=== PATIENT | male | born 1990 | race Caucasian/White ===

== ENCOUNTER 2019-04-04 18:38 | Emergency (ER) | payer OTHER ==
--- NOTE | 2019-04-04 19:18 | EDM.PDOC ---
ED HPI GENERAL MEDICAL PROBLEM - General Chief Complaint: Bite:Animal, Insect Stated Complaint: PT HAS SPIDER BITE ON RT ARM Time Seen by Provider: 04/04/19 19:11 - History of Present Illness INITIAL COMMENTS - FREE TEXT/NARRATIVE: HISTORY AND PHYSICAL: History of present illness: The patient is a 21-year-old male who presents with a five-day history of pain and swelling near his right elbow. The patient says that initially he had a small pustule on the underside of his proximal right forearm and he was not sure where he came from but he did squeeze it and it seemed to go away. He then noticed that there was redness and swelling to the area which seems to have gradually increased although he has no weakness numbness or tingling in the arm or the distal hand. He says that today he noticed that his forearm was significantly more swollen and red than the other one and he is concerned. He has no discrete elbow pain or bony forearm wrist or hand pain and he is left- hand dominant. He says he has no systemic complaints of fever chills nausea vomiting chest pain or shortness of breath and says he had a recent cold that he is getting over. He is able to use his hand and go to work and he says he does work around a lot of dirt and debris. He is up-to-date on his tetanus shot Review of systems: As per history of present illness and below otherwise all systems reviewed and negative. Past medical history: As per history of present illness and as reviewed below otherwise noncontributory. Surgical history: As per history of present illness and as reviewed below otherwise noncontributory. Social history: No reported history of drug or alcohol abuse. Family history: As per history of present illness and as reviewed below otherwise noncontributory. Physical exam: General: Well-developed well-nourished man who is nontoxic and vital signs are noted by me HEENT: Atraumatic, normocephalic, negative for conjunctival pallor or scleral icterus, mucous membranes moist, throat clear, neck supple, nontender, trachea midline. Lungs: Clear to auscultation, breath sounds equal bilaterally, chest nontender. Heart: S1S2, regular and rhythm no overt murmurs Abdomen: Soft, nondistended, nontender. NABS Pelvis: Deferred Genitourinary: Deferred. Rectal: Deferred. Extremities: Atraumatic, range of motion of all extremities with the exception of the left forearm where on the proximal aspect of the elbow on the extensor surface there is a 1 cm small area of pustule with a diffuse area of erythema extending both distally and proximally measuring approximately 21 x 20 cm. There is no gross fluctuance in this soft tissue area but there is induration and tenderness as well as warmth. The patient has no bony tenderness at the elbow forearm nor distally and proximally. He has full motor ability of his upper extremity including his forearm wrist and hand and has no pain with flexion and extension at his wrist or in his hand movements. He has slight streaking up the inner aspect of the upper arm but there is no axillary adenopathy. There is no crepitus on palpation and no discrete area of fluctuance that appears to be drainable. All other extremities are within normal limits and the legs are negative for cords or calf pain. Neurovascular unremarkable. Neuro: Awake, alert, oriented. Cranial nerves II through XII unremarkable. Cerebellum unremarkable. Motor and sensory unremarkable throughout. Exam nonfocal. Diagnostics: CBC with differential lactic acid x-ray of right elbow soft tissue ultrasound of right upper extremity, blood cultures 2 Culture of wound Therapeutics: IV vancomycin Toradol sling bacitracin and dressing After the ultrasound results were reviewed and discussed with the patient I did do a alcohol prep of the area and did a scraping of the surface of the pustule and was able to express some lid for culture. There was only a small amount approximately 1 mL of fluid. The patient tolerated this procedure well I discussed with the patient and family at bedside disposition plans. At this point he has some positive lab values but he is not systemically ill and he is receiving the vancomycin currently. He would like to try to go home I have marked the area and have cautioned him to follow this closely and will give him Bactrim for home. I've advised him that if he has any systemic complaints such as fever or the redness starts streaking or any dramatic changes that he should return to the ED for admission. He states understanding Impression: Cellulitis right forearm Definitive disposition and diagnosis as appropriate pending reevaluation and review of above. right elbow Pain Score (Numeric/FACES): 5 - Related Data Allergies Allergy/AdvReac Type Severity Reaction Status Date / Time amoxicillin Allergy Hives Verified 04/04/19 19:16 Home Meds: Home Meds . [No Known Home Meds] 04/04/19 [History] Past Medical History - Past Health History Medical/Surgical History: Denies Medical/Surgical History Social & Family History - Family History Family Medical History: Noncontributory - Tobacco Use Smoking Status *Q: Never Smoker - Recreational Drug Use Recreational Drug Use: No ED ROS GENERAL - Review of Systems Review Of Systems: ROS reveals no pertinent complaints other than HPI. ED EXAM, ANIMAL BITE - Physical Exam Exam: See Below (See dictation) Course - Vital Signs Last Recorded V/S: Last Vital Signs Temp 36.4 C 04/04/19 19:00 Pulse 88 04/04/19 21:00 Resp 18 04/04/19 21:00 BP 124/88 04/04/19 21:00 Pulse Ox 96 04/04/19 21:00 - Orders/Labs/Meds Orders: Active Orders 24 hr Category Date Time Status CULTURE BLOOD [BC] Stat Lab 04/04/19 20:33 Received CULTURE BLOOD [BC] Stat Lab 04/04/19 20:43 Received CULTURE WOUND [RM] Stat Lab 04/04/19 21:20 Ordered Sodium Chloride 0.9% [Saline Flush] Med 04/04/19 20:08 Active 10 ml FLUSH ASDIRECTED PRN Sodium Chloride 0.9% [Saline Flush] Med 04/04/19 20:08 Active 2.5 ml FLUSH ASDIRECTED PRN Vancomycin 1 gm Med 04/04/19 20:08 Active Sodium Chloride 0.9% [Normal Saline (AdvBag)] 250 ml IV ONETIME Blood Culture x2 Reflex Set [OM.PC] Stat Oth 04/04/19 20:25 Ordered Saline Lock Insert [OM.PC] Stat Oth 04/04/19 20:08 Ordered Medication Orders Vancomycin HCl 1 gm/ Sodium (Chloride) 250 mls @ 166 mls/hr IV ONETIME ONE Stop: 04/04/19 21:38 Last Admin: 04/04/19 20:59 Dose: 166 mls/hr Sodium Chloride (Saline Flush) 10 ml FLUSH ASDIRECTED PRN PRN Reason: Keep Vein Open Last Admin: 04/04/19 20:59 Dose: 10 ml Sodium Chloride (Saline Flush) 2.5 ml FLUSH ASDIRECTED PRN PRN Reason: Keep Vein Open Last Admin: 04/04/19 20:59 Dose: 2.5 ml Labs: Laboratory Tests 04/04/19 04/04/19 Range/Units 19:58 19:58 WBC 15.82 H (4.0-11.0) K/uL RBC 5.16 (4.50-5.90) M/uL Hgb 18.0 H (13.0-17.0) g/dL Hct 48.6 (38.0-50.0) % MCV 94.2 (80.0-98.0) fL MCH 34.9 H (27.0-32.0) pg MCHC 37.0 (31.0-37.0) g/dL RDW Std Deviation 42.9 (28.0-62.0) fl RDW Coeff of Nette 13 (11.0-15.0) % Plt Count 212 (150-400) K/uL MPV 10.10 (7.40-12.00) fL Neut % (Auto) 81.3 H (48.0-80.0) % Lymph % (Auto) 9.2 L (16.0-40.0) % Duc[place]ne % (Auto) 8.0 (0.0-15.0) % Eos % (Auto) 1.2 (0.0-7.0) % Baso % (Auto) 0.3 (0.0-1.5) % Neut # (Auto) 12.9 H (1.4-5.7) K/uL Lymph # (Auto) 1.5 (0.6-2.4) K/uL Duc[place]ne # (Auto) 1.3 H (0.0-0.8) K/uL Eos # (Auto) 0.2 (0.0-0.7) K/uL Baso # (Auto) 0.0 (0.0-0.1) K/uL Nucleated RBC % 0.0 /100WBC Nucleated RBCs # 0 K/uL Lactate 2.2 H (0.20-2.00) mmol/L Meds: Medications Generic Name Dose Route Start Last Admin Trade Name Freq PRN Reason Stop Dose Admin Vancomycin HCl 1 gm/ Sodium 250 mls @ 166 mls/hr 04/04/19 20:08 04/04/19 20: 59 Chloride IV 04/04/19 21:38 166 mls/hr ONETIME ONE Administration Sodium Chloride 10 ml 04/04/19 20:08 04/04/19 20:59 Saline Flush FLUSH 10 ml ASDIRECTED PRN Administration Keep Vein Open Sodium Chloride 2.5 ml 04/04/19 20:08 04/04/19 20:59 Saline Flush FLUSH 2.5 ml ASDIRECTED PRN Administration Keep Vein Open Discontinued Medications Generic Name Dose Route Start Last Admin Trade Name Freq PRN Reason Stop Dose Admin Ketorolac Tromethamine 30 mg 04/04/19 20:08 04/04/19 20:58 Toradol IVPUSH 04/04/19 20:09 30 mg ONETIME ONE Administration Departure - Departure Time of Disposition: 21:23 Disposition: Home, Self-Care 01 Condition: Good Clinical Impression: Cellulitis Qualifiers: Site of cellulitis: extremity Site of cellulitis of extremity: upper extremity Laterality: right Qualified Code(s): L03.113 - Cellulitis of right upper limb - Discharge Information Referrals: PCP,None [Primary Care Provider] - Forms: ED Department Discharge Additional Instructions: The following information is given to patients seen in the emergency department who are being discharged to home. This information is to outline your options for follow-up care. We provide all patients seen in our emergency department with a follow-up referral. The need for follow-up, as well as the timing and circumstances, are variable depending upon the specifics of your emergency department visit. If you don't have a primary care physician on staff, we will provide you with a referral. We always advise you to contact your personal physician following an emergency department visit to inform them of the circumstance of the visit and for follow-up with them and/or the need for any referrals to a consulting specialist. The emergency department will also refer you to a specialist when appropriate. This referral assures that you have the opportunity for followup care with a specialist. All of these measure are taken in an effort to provide you with optimal care, which includes your followup. Under all circumstances we always encourage you to contact your private physician who remains a resource for coordinating your care. When calling for followup care, please make the office aware that this follow-up is from your recent emergency room visit. If for any reason you are refused follow-up, please contact the [facility] emergency department at and ask to speak to the emergency department charge nurse. [facility] Primary care- Internal Medicine and Family [place] [id number] [place], [place] [id number] Continue to monitor the redness and swelling and return to ER as needed and as we discussed. Please take [id number] Tylenol or ibuprofen for pain and keep the wound clean and dry with mild soap and water and apply bacitracin or Neosporin. Please keep the wound covered when you're out and about and especially at work. Elevate the arm as much as possible and use sling as needed. Please take the Bactrim antibiotics you have been given this evening taken the first dose this evening. - My Orders Last 24 Hours: My Active Orders 04/04/19 20:08 Sodium Chloride 0.9% [Saline Flush] 10 ml FLUSH ASDIRECTED PRN Sodium Chloride 0.9% [Saline Flush] 2.5 ml FLUSH ASDIRECTED PRN Vancomycin 1 gm Sodium Chloride 0.9% [Normal Saline (AdvBag)] 250 ml IV ONETIME Saline Lock Insert [OM.PC] Stat 04/04/19 20:25 Blood Culture x2 Reflex Set [OM.PC] Stat 04/04/19 20:33 CULTURE BLOOD [BC] Stat 04/04/19 20:43 CULTURE BLOOD [BC] Stat 04/04/19 21:20 CULTURE WOUND [RM] Stat - Assessment/Plan Last 24 Hours: My Active Orders 04/04/19 20:08 Sodium Chloride 0.9% [Saline Flush] 10 ml FLUSH ASDIRECTED PRN Sodium Chloride 0.9% [Saline Flush] 2.5 ml FLUSH ASDIRECTED PRN Vancomycin 1 gm Sodium Chloride 0.9% [Normal Saline (AdvBag)] 250 ml IV ONETIME Saline Lock Insert [OM.PC] Stat 04/04/19 20:25 Blood Culture x2 Reflex Set [OM.PC] Stat 04/04/19 20:33 CULTURE BLOOD [BC] Stat 04/04/19 20:43 CULTURE BLOOD [BC] Stat 04/04/19 21:20 CULTURE WOUND [RM] Stat
--- NOTE | 2019-04-04 19:49 | CR ---
INDICATION: Insect bite; Rule out soft tissue gas. TECHNIQUE: AP and lateral projections of the right elbow. FINDINGS: No fractures, dislocations or joint effusion identified. No soft tissue gas is seen. There is soft tissue swelling at the dorsal forearm. Impression: Soft tissue swelling without gas or acute osseous finding. Dictated by Ulysses Dietz MD @ Apr 04 2019 7:46PM Signed by Dr. Ulysses Dietz @ Apr 04 2019 7:47PM
[2019-04-04] MEDS ORDERED: Sodium Chloride 0.9% 10 ML Syringe FLUSH PRN (20:08)
[2019-04-04] MEDS ORDERED: Ketorolac 30 MG/ML SDV IVPUSH ONE (20:08)
[2019-04-04] MEDS ORDERED: Sodium Chloride 0.9% 2.5 ML Syringe FLUSH PRN (20:08)
--- NOTE | 2019-04-04 21:05 | US ---
Indication: Redness, pain right elbow Technique: Ultrasound extremity right Comparison: None Findings: Present in the lateral right elbow is a 1.8 centimeter oval mixed echogenic area with a possible thickening wall. Findings are nonspecific but may represent phlegmonous changes or possibly developing abscess. The lesion is somewhat avascular in appearance. Impression: 1.8 centimeter oval mixed echogenic area lateral right elbow. Possible organizing echogenic wall. Findings are nonspecific but not definitive for abscess at this time. Findings may represent phlegmonous changes or early abscess formation. Close clinical follow-up recommended. Dictated by Jake Tolentino MD @ 04/04/2019 9:02:56 PM Dictated by: Jake Tolentino MD @ 04/04/2019 21:03:01 (Electronically Signed)
[2019-04-04] MEDS ORDERED: Bacitracin Oint 1 GM U/D Packet ONE (21:28)
[2019-04-04] MEDS ORDERED: Bacitracin Oint 1 GM U/D Packet TOP ONE (21:28)
== END 2019-04-04 22:46 | disposition home or self-care (01) ==
LOC: MW.ED 18:38
DX: L03.113 Cellulitis of right upper limb (principal); Z88.1 Allergy status to other antibiotic agents
CPT/HCPCS: 36415; 73070; 76881; 83605; 85025; 87040; 87070; 87077; 87186; 96365; 96366; 96375; 99284; J1885; J3370; J7050